=== PATIENT | male | born 1950 | race African-American/Black ===

== ENCOUNTER → 2016-07-27 | Outpatient (CLI) | payer MEDICARE ==
[~2016-07-27] MED LIST: ASPI-482 PO; OMEG1CAP38 PO; PRAV10TA2 PO; RANI300T PO
[2016-07-27 13:58] LABS: BASO # 0.1 x10^3/uL (0.0-0.2); BASO % 2 % (0-3); EOS % 4 % (0-3); HEMOGLOBIN 13.4 g/dL (13.0-17.5); LYMPH # 1.1 x10^3/uL (1.0-4.8); LYMPH % 23 % (24-48); MEAN CORPUSCULAR HEMOGLOBIN 30 pg (25-35); MEAN CORPUSCULAR HGB CONC 33 g/dL (31-37); MEAN CORPUSCULAR VOLUME 91 fL (79-100); MONO % 7 % (0-9); NEUT % 64 % (31-73); PLATELET COUNT 128 x10^3/uL (140-400); RED BLOOD COUNT 4.42 x10^6/uL (4.30-5.70); RED CELL DISTRIBUTION WIDTH 12.7 % (11.5-14.5); WHITE BLOOD COUNT 4.6 x10^3/uL (4.0-11.0)
[2016-07-27 14:11] LABS: INR 1.1 (0.8-1.1); PROTHROMBIN TIME PATIENT 13.4 SEC (11.7-14.0)
[2016-07-27 14:19] LABS: ALBUMIN 3.6 g/dL (3.4-5.0); ALBUMIN/GLOBULIN RATIO 1.1 (1.0-1.7); CALCIUM 9.5 mg/dL (8.5-10.1); CREATININE 1.4 mg/dL (0.7-1.3); GFR 61.5; POTASSIUM 4.2 mmol/L (3.5-5.1); TOTAL BILIRUBIN 0.3 mg/dL (0.2-1.0); TOTAL PROTEIN 6.9 g/dL (6.4-8.2)
== END | disposition home or self-care (01) ==
LOC: SURGPAT 13:15
PROVIDERS: ATTEND Specialist
DX: K40.90 Unilateral inguinal hernia, without obstruction or gangrene, not specified as recurrent (principal)
CPT/HCPCS: 36415; 80053; 85027; 85610

== ENCOUNTER 2016-07-31 09:47 | Day surgery (SDC) | payer MEDICARE ==
[~2016-07-31] VITALS: Ht 175.3 cm; Wt 66.7 kg
--- NOTE | 2016-07-31 07:01 | HP ---
ADMIT DATE: 07/31/2016 HISTORY OF PRESENT ILLNESS: The patient had been referred by Dr. Young because of a painful left inguinal mass. Apparently, it has been there for a year or so and increasing in pain and size. It caused him a lot of difficulty about a week ago and therefore, he went to the doctor and was sent to me. PAST MEDICAL HISTORY: Shows normal childhood diseases. He is treated for hypercholesterolemia and takes aspirin a day. He does not take hypertensive medications, but does take "a prostate medicine." ALLERGIES: He has no allergies. SOCIAL HISTORY: Shows that he smokes a half pack of cigarettes per day. He does not drink or use illicit drugs. PHYSICAL EXAMINATION: GENERAL: Shows a slender male in no acute distress. HEAD, EARS, EYES, NOSE AND THROAT: Grossly normal. CHEST: Clear bilaterally to auscultation. HEART: Had no murmurs, heaves, friction rubs or thrills. ABDOMEN: Gross examination, negative. The left inguinal area did have a mass, which I could not totally reduce. That was tender. He did not have excruciating abdominal pain and had no GI symptoms. GENITOURINARY: Normal male genitalia. EXTREMITIES: Grossly normal. IMPRESSION: 1. Hypercholesterolemia. 2. Left inguinal hernia, possibly incarcerated. HALINA SIMONS MD DR: EDELMIRA/gera JOB#: [id number] / [id number]
[~2016-07-31 09:47] MED LIST changes: +CEFAZOLIN 1GM IVPB FOR OMNI 50 ML IV PRN; +FENTANYL PF 100 MCG/2 ML VIAL. IV PRN; +HYDROMORPHONE 2 MG/ML VIAL. IV PRN; +IV RINGERS,LACTATED 1000ML 1,000 ML IV SCH; +LIDOCAINE 1% 1 ML SYRINGE. ID PRN; +MORPHINE SULFATE 2 MG/ML DISP.SYRIN. IV PRN; -OMEG1CAP38 PO; +ONDANSETRON PF 4 MG/2 ML VIAL. IV PRN; +PROCHLORPERAZINE 10 MG/2 ML VIAL. IV PRN
[2016-07-31] MEDS ORDERED: OMEG1CAP38 PO (10:07)
[2016-07-31] MEDS ORDERED: ONDANSETRON PF 4 MG/2 ML VIAL. ONE (11:09)
[2016-07-31] MEDS ORDERED: ROCURONIUM 50 MG/5 ML VIAL. ONE (11:09)
[2016-07-31] MEDS ORDERED: LIDOCAINE 2% 100 MG/5 ML DISP.SYRIN. ONE (11:09)
[2016-07-31] MEDS ORDERED: MIDAZOLAM HCL 2 MG/2 ML VIAL. ONE (11:09)
[2016-07-31] MEDS ORDERED: PROPOFOL 20 ML IV ONE ×2 (11:09→14:12)
[2016-07-31] MEDS ORDERED: DEXAMETHASONE SOD PHOS 20 MG/5 ML VIAL. ONE (11:09)
[2016-07-31] MEDS ORDERED: FENTANYL PF 250 MCG/5 ML VIAL. ONE (11:09)
--- NOTE | 2016-07-31 11:35 | PDOC ---
SURGICAL PROGRESS NOTE Subjective no change to dictated H&P Vital Signs Vital Signs Date Time Temp Pulse Resp B/P Pulse Ox O2 Delivery O2 Flow Rate FiO2 07/31/16 10:10 97.7 59 16 144/77 98 Room Air 97.7 HALINA SIMONS MD Jul 31, 2016 11:35
--- NOTE | 2016-07-31 11:40 | PDOC ---
PROGRESS NOTES Subjective Subjective OP Note Surgeon............................................... Marvin Pre & Post op diagnosis ....................... left inguinal hernia Anesthesia ......................................... general Procedure .......................................... left inguinal hernia repair Drains.................................................none Fluids................................................. see anesthesia sheet Blood loss ......................................... 20 cc Condition............................................ Satisfactory Objective Objective Vital Signs Date Time Temp Pulse Resp B/P Pulse Ox O2 Delivery O2 Flow Rate FiO2 07/31/16 10:10 97.7 59 16 144/77 98 Room Air 97.7 Comment Review of Relevant I have reviewed the following items steph (where applicable) has been applied. Medications Current Medications Ondansetron HCl (Zofran) 4 mg PRN Q6HRS PRN IV Nausea; Start 07/31/16 at 07:00 ; Stop 08/01/16 at 06:59 Fentanyl Citrate (Fentanyl 2ml Vial) 25 mcg PRN Q5MIN PRN IV MILD PAIN; Start 07/31/16 at 07:00; Stop 08/01/16 at 06:59 Fentanyl Citrate (Fentanyl 2ml Vial) 50 mcg PRN Q5MIN PRN IV MODERATE PAIN; Start 07/31/16 at 07:00; Stop 08/01/16 at 06:59 Morphine Sulfate 1 mg 1 mg PRN Q10MIN PRN IV SEVERE PAIN; Start 07/31/16 at 07: 00; Stop 08/01/16 at 06:59 Lactated Ringer's (Iv Lactated Ringers) 1,000 ml @ 0 mls/hr Q0M IV Last administered on 07/31/16t 10:14; Start 07/31/16 at 07:00; Stop 07/31/16 at 18:59 Lidocaine HCl 2 ml 1X PRN PRN ID IV START; Start 07/31/16 at 07:00; Stop at 06:59 Hydromorphone HCl (Dilaudid) 0.5 mg PRN Q10MIN PRN IV SEVERE PAIN, Second choice; Start 07/31/16 at 07:00; Stop 08/01/16 at 06:59 Prochlorperazine Edisylate 5 mg 5 mg PACU PRN PRN IV NAUSEA; Start 07/31/16 at 07:00; Stop 08/01/16 at 06:59 Cefazolin Sodium (Ancef 1gm Ivpb For Omni) 50 ml @ 100 mls/hr 1X PREOP PRN IV PRIOR TO PROCEDURE; Start 07/31/16 at 06:00; Stop 07/31/16 at 18:00 Active Scripts Active Reported Nice 3 Fish Oil Softgel (Nice-3 Fatty Acids/Fish Oil) 1 Each Capsule.dr 1 Each PO DAILY Pravastatin Sodium 10 Mg Tablet 10 Mg PO HS Aspir 81 (Aspirin) 81 Mg Tablet. 81 Mg PO DAILY Ranitidine Hcl 300 Mg Tablet 300 Mg PO HS Vitals/I & O Vital Sign - Last 24 Hours 07/31/16 10:10 Temp 97.7 97.7 Pulse 59 Resp 16 B/P 144/77 Pulse Ox 98 O2 Delivery Room Air HALINA SIMONS MD Jul 31, 2016 11:40
[2016-07-31] MEDS ORDERED: BUPIVACAINE-EPI 0.5%-1:200000 50 ML VIAL. ONE (12:06)
[2016-07-31] MEDS ORDERED: EPHEDRINE PF IN SALINE 50 MG/5 ML DISP.SYRIN. IV ONE (12:35)
[2016-07-31] MEDS ORDERED: BUPIVACAINE-EPI 0.5%-1:200000 50 ML VIAL. INJ ONE (12:50)
[2016-07-31] MEDS ORDERED: NEOSTIGMINE METHYLSULFATE 5 MG/5 ML SYRINGE. ONE (13:03)
[2016-07-31] MEDS ORDERED: GLYCOPYRROLATE 1 MG/5 ML VIAL. ONE (13:03)
[2016-07-31] MEDS ORDERED: KETOROLAC 60 MG/2 ML SYRINGE FOR OR. ONE (13:59)
[2016-07-31] MEDS ORDERED: SEVOFLURANE 61 TO 120 MINUTES. IH ONE (14:28)
[2016-07-31 15:31] VITALS: BP 110/70
--- NOTE | 2016-08-01 00:26 | OP ---
DATE OF SURGERY: SURGEON: Edouard Simons MD PREOPERATIVE DIAGNOSIS: Left inguinal hernia. POSTOPERATIVE DIAGNOSIS: Incarcerated left inguinal hernia. ANESTHESIA: General. PROCEDURE: Repair of direct and indirect incarcerated left inguinal hernia. TECHNIQUE: Within under general anesthesia, the patient was properly prepped and draped in a routine fashion. The patient was properly prepped and draped in routine fashion and a transverse incision was made following the skin lines in the left groin. This was carried down through the skin with a 15 blade. We then went through the subcu down to the fascia with cautery. There was a small split in the fascia and a 15 blade was used to make an incision there. We then opened the fascia going under the fascia with Metzenbaum scissors and spreading, so as not to injure any tissue under there and opened the fascia. This was external oblique down to and through the external inguinal ring. We then pushed the cord structures away from the lateral and medial edges of this. We then placed the finger under the cord structures at the pubic tubercle and then placed a [place] drain there. We placed a Barragan inferiorly and laterally to keep the fascial edges apart. We used the Weitlaner clamp. We then the cremasteric fibers and could easily see hernia came through the posterior inguinal floor close to the cord, but not in the cord. This was freed up using sponges and pushing away and Metzenbaum scissors, so that the hernia was clearly defined. There was another small mass in the cord. The cord was opened and this was in fact an indirect inguinal hernia with mostly fat coming through there. We freed this up likewise. We used the small medium PerFix plug to place in the hernia that was coming through the internal inguinal ring and the cord structures and placed this high up into the internal inguinal ring. Sutured this in place using 4-0 Vicryl. An extra large PerFix plug was placed after this hernia in the posterior floor was noted and we placed this in there. At first, it was too thick and we cut one or two of the leaflets away and placed it into the hernia. That was a pretty good fascia in the posterior floor that the hernia came through and therefore, we placed hernia contents and then the PerFix plug back into this area and sutured it in place using 4-0 Vicryl. We then used a #0 Prolene to suture the defect actually closed as it was a good firm fascia around the hole in the posterior floor of the inguinal canal. This having been done, we then placed a patch over the posterior floor and around the cord structures and put suture around the keyhole of 2-0 Prolene and sutured it so that it was not tight around the cord structures. We placed this well down on the posterior floor and then starting at the pubic tubercle with two #0 Prolene sutures, we placed these in the mesh and also at the pubic tubercle. We ran one laterally taking the shelving edge of Poupart ligament and carried this well past the internal inguinal ring. The medial one we took taking transversalis fascia and ran it around over the cord structures and back around to Poupart ligament and tied them. We tied them separately. We then had the posterior floor there. We then splayed the mesh out and then sutured it so that it lay flat on the posterior floor. We did this with 2-0 Vicryl. The sutured areas in the fascia were anesthetized with 0.5% Marcaine with epinephrine to about 20 mL. We then, having done this, placed a cord back in its normal position. The ilioinguinal nerve was identified at the initial aspect of the surgery and was kept out of the way and was then placed back into its natural position on the anterior surface of the cord structures. The external oblique aponeurosis was then approximated with 2-0 Prolene in a running fashion. This was anesthetized with about 10 mL of 0.5% Marcaine and epinephrine. The subcutaneous was then irrigated with copiously amounts of saline and approximated with 4-0 Vicryl interrupted sutures and then the skin was closed using a subcuticular 5-0 Vicryl. The procedure was then terminated as sterile Tegaderm dressing was applied. The blood loss was probably 5-10 mL. Fluids given can be obtained from the anesthesia sheet. No drains were used and the condition of the patient was satisfactory as he was returned to the recovery room. It should be noted that the cord and the testicle were in normal position post procedure. EDOUARD SIMONS MD DR: EDELMIRA/gera JOB#: [id number] / [id number]
== END 2016-07-31 16:15 | disposition home or self-care (01) ==
LOC: SURG 09:47
PROVIDERS: ATTEND Specialist
DX: K40.30 Unilateral inguinal hernia, with obstruction, without gangrene, not specified as recurrent (principal); E78.00 Pure hypercholesterolemia, unspecified; K21.9 Gastro-esophageal reflux disease without esophagitis; Z79.82 Long term (current) use of aspirin
CPT/HCPCS: 49507; J0690; A4215; C1781; J1100; J1885; J2250; J2405; J2704; J2710; J3010; J3490; J7120

== ENCOUNTER → 2017-03-12 | Outpatient (CLI) | payer MEDICARE ==
[~2017-03-12] MED LIST changes: -CEFAZOLIN 1GM IVPB FOR OMNI 50 ML IV PRN; -FENTANYL PF 100 MCG/2 ML VIAL. IV PRN; -HYDROMORPHONE 2 MG/ML VIAL. IV PRN; -IV RINGERS,LACTATED 1000ML 1,000 ML IV SCH; -LIDOCAINE 1% 1 ML SYRINGE. ID PRN; -MORPHINE SULFATE 2 MG/ML DISP.SYRIN. IV PRN; +OMEG1CAP38 PO; -ONDANSETRON PF 4 MG/2 ML VIAL. IV PRN; -PROCHLORPERAZINE 10 MG/2 ML VIAL. IV PRN
--- NOTE | 2017-03-12 11:56 | RAD ---
CT chest Indication: Low-dose CT chest. History of smoking half pack a day for 44 years. No family history of lung cancer Technique: Low-dose CT of the chest with multiplanar reformats. Comparison: Previous study from 03/15/2016 Findings: No axillary, mediastinal adenopathy. Evaluation of hilar lymphadenopathy is limited due to lack of IV contrast. Heart is normal in size. Aortic arch calcifications. Coronary artery calcifications. Diffuse bilateral emphysematous changes. Calcified granuloma seen in the left upper lobe. No pulmonary nodules. Punctate calcifications in the spleen likely healed metastatic disease. The noncontrast appearance of the liver, pancreas, adrenals and kidneys is within normal limits. No suspicious bony lesions. Impression: No pulmonary nodules. Diffuse emphysema. Lung-RADS category 1: Negative. PQRS Compliance Statement: One or more of the following individualized dose reduction techniques were utilized for this examination: 1. Automated exposure control 2. Adjustment of the mA and/or kV according to patient size 3. Use of iterative reconstruction technique
== END | disposition home or self-care (01) ==
LOC: CT 10:52
PROVIDERS: ATTEND Family Medicine
DX: J43.9 Emphysema, unspecified (principal); Z72.0 Tobacco use
CPT/HCPCS: 71250

== ENCOUNTER → 2017-09-18 | Outpatient (CLI) | payer MEDICARE | END | disposition home or self-care (01) | LOC: US 07:03 | DX: I65.23 Occlusion and stenosis of bilateral carotid arteries (principal) | CPT/HCPCS: 93880 ==

== ENCOUNTER → 2020-10-11 | Day surgery (SDC) | payer MEDICARE ==
[~2020-10-11] MED LIST changes: +0.9 % SODIUM CHLORIDE 20 ML VIAL. IJ ONE; +GELATIN SPONGE SIZE 100. ONE; +IV RINGERS,LACTATED 1000ML 1,000 ML IV ONE; +LIDOCAINE 2% PF 5 ML VIAL. ONE; +PHENYLEPHRINE in 0.9% NACL PF 1 MG/10 ML SYRINGE. IV ONE; +PROPOFOL 10 MG/ML (20ML) VIAL. IV ONE; +REMIFENTANIL 1 MG VIAL. IV ONE; +ROCURONIUM 50 MG/5 ML VIAL. ONE; +SEVOFLURANE > 120 MINUTES. IH ONE; +ePHEDrine PF IN SALINE 50 MG/10 ML SYRINGE. IV ONE; +niCARdipine INJ. IV ONE
--- NOTE | 2020-10-11 14:28 | PDOC4 ---
PROCEDURE Procedure Colonoscopy with biopsies. Indication: h/o polyps, last exam 2010 Meds: per anesthesia FIndings: SCOTT: normal --'Scope advanced to cecum. Prep adequate. No diverticular disease. 4 mm sessile polyp, mid-transverse, biopsied off. Small IH's on retroflex. Kris. well. IMP: polyp IH's REC: Await path. Resume home meds, diet. F/u with me in 2 weeks. Repeat exam in 5 years. ARCADIO GIL MD October 11, 2020 14:28
[2020-10-11 14:50] VITALS: BP 106/61
--- NOTE | 2020-10-14 15:10 | PATHOLOGY ---
[facility] Accession Number: [id number] . 01 Material submitted: . colon - TRANSVERSE COLON POLYP. Modifiers: transverse . 01 Clinical history: . HX POLYPS . 02 Diagnosis: Colon biopsy, transverse colon polyp: - Tubular adenoma. . ([facility]; 10/14/2020) [facility] 10/14/2020 1339 Local . 02 Comment: There is no high grade dysplasia or evidence of malignancy. . ([facility]; 10/14/2020) . 02 Electronically signed: . Cirilo Kiser MD, Pathologist NPI- [id number] . 01 Gross description: . The specimen is received in formalin, labeled "Darshan, Mitesh, transverse colon polyp" received as one fragment of soft robert tissue measuring up to 0.3 cm. Entirely submitted in A1.([facility]; 10/13/2020) [facility] 10/13/2020 1659 Local . 02 Pathologist provided ICD-10: D12.3 . 02 CPT . 548054 Specimen Comment: A courtesy copy of this report has been sent to [phone], [phone] Specimen Comment: [id number] Specimen Comment: Report sent to / DR NEWMAN Performed at: 01 [facility] [address], [place], [place] [id number] MD Ish Floyd MD Phone: [phone] Performed at: 02 [facility] [address] [place], [place] [id number] MD Cirilo Kiser MD Phone: [phone]
== END | disposition home or self-care (01) ==
LOC: SURG 12:56
PROVIDERS: ATTEND Internal Medicine Gastroenterology
DX: Z12.11 Encounter for screening for malignant neoplasm of colon (principal); K64.0 First degree hemorrhoids; D12.3 Benign neoplasm of transverse colon; K63.89 Other specified diseases of intestine; E78.00 Pure hypercholesterolemia, unspecified; K21.9 Gastro-esophageal reflux disease without esophagitis; Z86.010 Personal history of colon polyps; Z87.891 Personal history of nicotine dependence; Z79.899 Other long term (current) drug therapy; Z20.822 Contact with and (suspected) exposure to COVID-19; Z98.890 Other specified postprocedural states
CPT/HCPCS: 45380; 87426; J2370; J2704; 88305; J3490